=== PATIENT | female | born 1955 | race Caucasian/White ===

== ENCOUNTER 2017-09-04 09:08 | Emergency (ER) | payer BC, OTHER ==
[2017-09-04] MEDS ORDERED: Lidocaine 1% (PF) 30 ML VIAL ONE (09:29)
[2017-09-04] MEDS ORDERED: Fentanyl 100 MCG/2 ML VIAL ONE (09:29)
[2017-09-04] MEDS ORDERED: Ondansetron HCl/PF 4 MG/2 ML Vial ONE ×2 (09:51→10:56)
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
--- NOTE | 2017-09-04 11:30 | RAD ---
RIGHT WRIST 2 VIEWS: Date: 09/04/17 HISTORY: Post reduction. COMPARISON: Radiographs from same day early in the morning. FINDINGS: There is very similar appearance to the impacted distal radius fracture with dorsal angulation and do rsal displacement. The ulnar styloid base fracature is similar. IMPRESSION: Similar appearance of the distal radius and ulnar fractures. POS: [facility]
== END 2017-09-04 12:21 | disposition home or self-care (01) ==
LOC: ERS 09:08
DX: S52.501A Unspecified fracture of the lower end of right radius, initial encounter for closed fracture (principal); S52.611A Displaced fracture of right ulna styloid process, initial encounter for closed fracture; J45.909 Unspecified asthma, uncomplicated; E78.5 Hyperlipidemia, unspecified; Z79.899 Other long term (current) drug therapy; V43.52XA Car driver injured in collision with other type car in traffic accident, initial encounter
CPT/HCPCS: 25605; 71046; 96374; 96375; J2001; J2405; J3010

== ENCOUNTER 2019-07-09 20:57 | Emergency (ER) | payer BC ==
[2019-07-09 22:20] LABS: #Eosinphils 0.3 thou/uL (0.0-0.7); #Lymphocytes 1.5 thou/uL (1.20-3.40); #Monocytes 0.4 thou/uL (0.11-0.59); #Neutrophils 3.7 thou/uL (1.40-6.50); %Basophils 0.3 % (0.0-1.0); %Eosinophils 4.7 % (0.0-10.0); %Lymphocytes 26.3 % (21.0-51.0); %Monocytes 6.4 % (0.0-10.0); %Neutrophils 62.2 % (42.0-75.0); Hemoglobin 14.5 g/dL (12.0-16.0); Mean Corpuscular HGB CONC 31.3 g/dL (32.0-36.0); Mean Corpuscular Hemoglobin 28.8 pg (27.0-31.0); Mean Corpuscular Volume 92.2 fL (78.0-98.0); Mean Platelet Volume 9.7 fL (7.4-10.4); Platelet Count 168 thou/uL (130-400); RBC Distribution Width 11.5 % (11.5-14.5); Red Blood Cell (RBC) Count 5.01 mill/uL (4.20-5.40); White Blood Cell (WBC) Count 5.9 thou/uL (4.8-10.8)
[2019-07-09 22:40] LABS: ALT (SGPT) 40 U/L (8-55); AST (SGOT) 26 U/L (5-34); Albumin 4.3 g/dL (3.4-4.8); Alkaline Phosphatase 98 U/L (40-110); Anion Gap 14 mmol/L (10-20); BUN (Urea Nitrogen) 12 mg/dL (9.8-20.1); Bilirubin, Total 0.5 mg/dL (0.2-1.2); Calc. Creatinine Clearance 0 mL/min (70-130); Calcium 9.2 mg/dL (7.8-10.44); Carbon Dioxide 25 mmol/L (23-31); Chloride 106 mmol/L (98-107); Estimated GFR-MDRD 89; Globulin 2.6 g/dL (2.4-3.5); Glucose 106 mg/dL (80-115); Potassium 3.8 mmol/L (3.5-5.1); Protein, Total 6.9 g/dL (6.0-8.3); Sodium 141 mmol/L (136-145)
[2019-07-09] MEDS ORDERED: Metoclopramide HCl 10 MG/2 ML VIAL ONE (23:13)
[2019-07-09] MEDS ORDERED: diphenhydrAMINE 50 MG/ML VIAL ONE (23:13)
[2019-07-10] MEDS ORDERED: Ketorolac Tromethamine 30 MG/ML VIAL ONE (00:05)
--- NOTE | 2019-07-10 07:19 | CT ---
CT BRAIN WITHOUT CONTRAST: Date: 07/09/2019 HISTORY: Headache. COMPARISON: None. FINDINGS: No acute hemorrhage or infarct. No midline shift or mass effect. Ventricular size and extra-axial CSF spaces are normal. Calvarium is intact. Paranasal sinuses and mastoids are clear. IMPRESSION: No acute intracranial abnormality. POS: [facility]
== END 2019-07-10 00:41 | disposition home or self-care (01) ==
LOC: ERS 20:57
DX: R51 Headache (principal); E78.5 Hyperlipidemia, unspecified; E78.00 Pure hypercholesterolemia, unspecified; J45.909 Unspecified asthma, uncomplicated; Z79.51 Long term (current) use of inhaled steroids
CPT/HCPCS: 36415; 70450; 80053; 85025; 85652; 96365; 96375; J1200; J1885; J2765

== ENCOUNTER 2020-03-15 12:41 | Outpatient (CLI) | payer MEDICARE, BC ==
--- NOTE | 2020-03-15 13:03 | RAD ---
EXAM: 2 views of the left forearm HISTORY: Lateral arm pain COMPARISON: None FINDINGS: There is no evidence of acute fracture or dislocation. No soft tissue swelling is seen. No degenerative changes are seen in the wrist or elbow. IMPRESSION: No evidence of acute osseous abnormality.
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
== END 2020-03-15 12:42 | disposition home or self-care (01) ==
LOC: BICRAD 12:41
PROVIDERS: ATTEND Internal Medicine
DX: M25.522 Pain in left elbow (principal); M79.602 Pain in left arm

== ENCOUNTER 2020-12-20 09:06 | Outpatient (CLI) | payer MEDICARE, BC | END 2020-12-20 09:07 | disposition home or self-care (01) | LOC: BICMAMMO 09:06 | PROVIDERS: ATTEND Internal Medicine | DX: Z12.31 Encounter for screening mammogram for malignant neoplasm of breast (principal); Z13.820 Encounter for screening for osteoporosis; E04.2 Nontoxic multinodular goiter; M81.0 Age-related osteoporosis without current pathological fracture; M85.852 Other specified disorders of bone density and structure, left thigh; Z98.890 Other specified postprocedural states; Z85.43 Personal history of malignant neoplasm of ovary; Z80.3 Family history of malignant neoplasm of breast | CPT/HCPCS: 76536; 77063; 77067; 77080 ==

== ENCOUNTER 2023-09-12 09:41 | Outpatient (CLI) | payer MEDICARE | END 2023-09-12 09:42 | disposition home or self-care (01) | LOC: RAD 09:41 | PROVIDERS: ATTEND Internal Medicine Critical Care Medicine | DX: R06.00 Dyspnea, unspecified (principal) | CPT/HCPCS: 71046 ==